=== PATIENT | female | born 1935 | race Caucasian/White ===

== ENCOUNTER → 2017-03-12 | Outpatient (CLI) | payer MEDICARE, OTHER ==
[2017-03-12 12:36] LABS: REASON FOR REVIEW COMPREHENSIVE REVIEW
== END ==
LOC: M LAB 11:05
PROVIDERS: ATTEND Family Medicine
DX: D72.1 Eosinophilia (principal)

== ENCOUNTER → 2017-09-21 | Outpatient (REF) | payer MEDICARE, OTHER ==
[2017-09-21 17:39] LABS: FREE T4 0.99 NG/DL (0.76-1.46)
== END ==
LOC: M LAB REF 17:03
DX: E07.9 Disorder of thyroid, unspecified (principal)
CPT/HCPCS: 84443

== ENCOUNTER → 2019-02-14 | Outpatient (CLI) | payer MEDICARE, OTHER ==
[~2019-02-14] MED LIST: AMLO10TA5 PO; ASPI81TA26 PO; BIOT1000 PO; BYST5TAB2 PO; CHLO25TA PO; LOSA100T50 PO; PANT40TA3 PO; PRAV20TA2 PO; SYMB16INH INH
[2019-02-14 14:32] LABS: ALBUMIN 3.7 GM/DL (3.2-5.2); CALCIUM LEVEL 9.3 MG/DL (8.8-10.2); CREATININE FOR GFR 1.35 MG/DL (0.55-1.30); PHOSPHORUS LEVEL 3.4 MG/DL (2.5-4.9); POTASSIUM SERUM 3.8 MEQ/L (3.5-5.1)
== END ==
LOC: M WUC 10:41
PROVIDERS: ATTEND Physician Assistant
DX: I10 Essential (primary) hypertension (principal)

== ENCOUNTER → 2019-03-09 | Outpatient (CLI) | payer MEDICARE, OTHER ==
[~2019-03-09] MED LIST changes: -AMLO10TA5 PO; -SYMB16INH INH
--- NOTE | 2019-03-09 11:31 | REP ---
Lower Extremity Venous Reflux: Positive reflux is greater than 0.5 seconds. Right Reflux Left Reflux CFV Reflux no no Ant. Acc. GSV Present no yes Reflux no no Greater saph/fem junction 6.9 mm no five mm no Greater saph vein mid thigh 2.3 mm no 1.9 mm no Greater saph vein at knee 1.8 mm yes 1.5 mm no SFV PROX no no SFV MID no no SFV DISTAL no no POPLITEAL VEIN no no LSV 5.8 mm no 6.3 mm no On the right, there is reflux in the distal greater saphenous vein. There is no reflux on the left. Bilateral lower extremity deep vein duplex ultrasound for thrombus: The deep veins demonstrate normal compression, normal Doppler color flow and normal Doppler waveforms with respiration and augmentation from the popliteal veins to the common femoral veins in the right and left lower extremities. Impression: There is no deep vein thrombus in the right or left lower extremities . Electronically Signed by Gaurang Tidwell MD 03/09/2019 11:23 A
--- NOTE | 2019-03-09 11:59 | REP ---
BILATERAL LOWER EXTREMITY DUPLEX DOPPLER ARTERIAL ULTRASOUND: Real-time ultrasound evaluation and duplex Doppler interrogation of the bilateral lower extremity arterial systems is performed. LLUVIA is 1.1 and left 1.1. There is noncalcified and calcified plaque seen diffusely bilaterally. There is elevated peak systolic velocity in the mid right superficial femoral artery compatible with fairly high grade stenosis. Lesser degree of stenosis is seen in the mid left superficial femoral artery, with lesser degree of elevated peak systolic velocity at that location. Triphasic waveforms are seen in the right common femoral and profunda arteries with monophasic waveforms in the superficial femoral artery as well as distally. Biphasic waveforms are seen in the left common femoral artery and profunda with the monophasic waveforms more distally in the superficial femoral artery and calf arteries. Biphasic waveforms are seen in the distal superficial femoral and popliteal arteries on the left. PEAK SYSTOLIC VELOCITY RIGHT LEFT Common femoral artery 133.0 cm/s 105.0 cm/s Profunda 142.5 108.0 Proximal SFA 80.3 118.0 Superficial femoral artery mid 391.2 166.4 Superficial femoral artery distal 139.9 110.2 Popliteal 76.3 101.1 Proximal anterior tibial artery 60.0 33.4 Tibial peroneal trunk 73.7 74.9 Proximal posterior tibial artery 66.8 78.9 Distal posterior tibial artery 26.0 17.3 Distal anterior tibial artery 45.3 33.7 IMPRESSION: Moderate plaquing and narrowing diffusely bilaterally with stenosis of the mid superficial femoral arteries, right greater than left. Electronically Signed by Gaurang Cho MD 03/09/2019 06:27 P
== END ==
LOC: M RAD 07:42
PROVIDERS: ATTEND Surgery Vascular Surgery
DX: I70.213 Atherosclerosis of native arteries of extremities with intermittent claudication, bilateral legs (principal); I83.813 Varicose veins of bilateral lower extremities with pain

== ENCOUNTER → 2019-03-22 | Outpatient (CLI) | payer MEDICARE, OTHER ==
[~2019-03-22] MED LIST changes: +AMLO10TA5 PO; +SYMB16INH INH
[2019-03-22 14:51] LABS: HEMATOCRIT 39.3 % (36.0-47.0); HEMOGLOBIN 13.3 g/dl (12.0-15.5); MEAN CORPUSCULAR HEMOGLOBIN 30.7 pg (27.0-33.0); MEAN CORPUSCULAR HGB CONC 33.8 g/dl (32.0-36.5); MEAN CORPUSCULAR VOLUME 90.8 fl (80.0-96.0); PLATELET COUNT, AUTOMATED 275 10^3/uL (150-450); RED BLOOD COUNT 4.33 10^6/uL (4.00-5.40); WHITE BLOOD COUNT 7.6 10^3/uL (4.0-10.0)
[2019-03-22 15:16] LABS: CALCIUM LEVEL 9.2 MG/DL (8.8-10.2); CREATININE FOR GFR 1.52 MG/DL (0.55-1.30); GLOMERULAR FILTRATION RATE 34.9 (>32); POTASSIUM SERUM 4.2 MEQ/L (3.5-5.1)
== END ==
LOC: M LAB 14:15
PROVIDERS: ATTEND Surgery Vascular Surgery
DX: Z01.818 Encounter for other preprocedural examination (principal); I70.213 Atherosclerosis of native arteries of extremities with intermittent claudication, bilateral legs

== ENCOUNTER → 2019-03-28 | Outpatient (CLI) | payer MEDICARE, OTHER ==
[~2019-03-28] MED LIST changes: +HEPARIN 1,000 UNITS/ML 10ML VIAL (FOR RADIOLOGY& DIALYSIS ONLY) As Ordered ONE; +ISOVUE-300 61% 50ML VIAL (Q9967) As Ordered ONE; +LIDOCAINE 1% MDV 20ML VIAL As Ordered ONE; +MIDAZOLAM INJ 2 MG/2 ML VIAL (J2250) As Ordered ONE; +diphenhydrAMINE INJ 50MG/ML VIAL (J1200) As Ordered ONE; +fentaNYL 100 MCG/2 ML INJECTION (J3010) As Ordered ONE
--- NOTE | 2019-03-28 10:54 | ROOPDOC ---
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 Ultrasound-guided access left common femoral artery 2. Aortoiliofemoral arteriogram, right lower extremity arteriograms from selection common femoral artery, distal posterior tibial artery 3. Angioplasty left superficial femoral artery and proximal popliteal artery including pre-existing stent with 5 x 200 Deposit balloon 4. 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 Completion arteriograms 6. Mynx closure left common femoral artery SURGEON: Eric Plaza MD ANESTHESIA: Lidocaine 8 mL local sedation. Moderate intravenous conscious sedation was supervised by Dr. Plaza. The patient was independently monitored by registered nurse in to the department of radiology using automated blood pressure, EKG, and pulse oximetry. The detailed sedation record is permanently housed in the hospital information system. The following is the [facility] sedation record: Start time 09:43, stop time 10:29, fentanyl 75 g IV, Versed 1 mg IV, heparin 5000 units IV. CONTRAST: Isovue 36 mL INDICATION FOR PROCEDURE: Mrs. Kramer is a very pleasant 83-year-old patient with PVD and claudication as well as venous insufficiency was swelling of the bilateral lower extremities. She is unable to wear compression due to arterial insufficiency, and we discussed the risks benefits and alternatives to an arteriogram with potential intervention. Her right leg is worse, so we will pursue that leg first. Breast benefits and alternatives to an arteriogram possible angioplasty possible stent were explained to the patient. She is agreeable to proceed. Informed consent was obtained. INTERPRETATION: 1. The aortoiliac segments are widely patent. 2. The right common femoral and profunda are widely patent in the proximal SFA is widely patent. About 5 cm distal to the origin, there is diffuse plaque throughout the rest of the SFA and proximal popliteal artery that narrows the vessel and has multiple luminal irregularities that combined or flow-limiting. There is no focal stenosis greater than 50%, but the vessel is diffusely narrowed about 40%. 3. The distal popliteal arteries widely patent and proximally there is 3 vessels open, but the anterior tibial is the main runoff to the foot. The peroneal artery is patent but diminutive in size. The posterior tibial artery occluded several centimeters from its origin and there is a hint of reconstitution at the ankle. 4. After angioplasty of the SFA, there were 2 mild mid SFA dissections, but these were not flow-limiting and no additional stenting or intervention was p erformed. The rest of the vessel was widely patent after angioplasty with a much improved flow rate. No extravasation or embolization was noted. The Cheng's canal stent that was placed by a separate surgeon at a separate procedure is now patent. 5. After crossing the occlusion and the posterior tibial artery, and confirming we were intraluminal with a quick arteriogram, the vessel was successfully angioplastied with a 2.5 x 200 Sachin balloon with 3 vessel runoff to the foot. No extravasation, embolization, or dissection was noted. REPORT OF OPERATION: The patient was brought to the angiographic suite in stable condition and placed supine on the fluoroscopic table. Her bilateral groins were prepped and draped in sterile fashion. A timeout was performed. Sedation was administered without complication. Local anesthesia was a adjunct instructor chemistry to the skin and subcutaneous tissue over the left common femoral artery and a microneedle was used to access the artery under ultrasound guidance. Wire was passed through this access fluoroscopic guidance and a micro-sheath was placed. We then advanced a Glidewire through this access into the aorta under fluoroscopic guidance and are sheath was exchanged for a 6 Cymraes sheath which was flushed with saline. The catheter was advanced over the wire and and aortoiliofemoral arteriogram was performed. Please see interpretation above. We then went up and over the bifurcation with a Glidewire and the catheter and selected the common femoral artery. The right lower extremity arteriogram with runoff was performed. Please see interpretation above. We then advanced the wire in the superficial femoral artery and exchange the sheath for 45 cm 6 Cymraes sheath into the origin of the right SFA and flushed sheath with saline. We advanced a Glidewire across the SFA and angioplastied from the proximal popliteal to the proximal superficial femoral artery with a 5 x 200 Deposit balloon for three-minute inflations. Following this, there is a dramatic improvement in flow. Small nonflow limiting dissections into mid portions of the SFA were noted, no additional intervention was required. No extravasation or embolization was noted. We then advanced a Glidewire with a glide cath through the tibial system. It was a little challenging to access the posterior tibial artery but we were able to do so and eventually we were able to cross the chronic total occlusion to the ankle. The wire was advanced across the ankle to the plantar vessel and we confirmed to be in the true lumen with a selection of the distal posterior tibial artery. We then did exchange the wire for an O18 wire and advanced a 2.5 x 220 Sachin balloon across the ankle and angioplastied the distal posterior tibial artery to the foot. We then retracted the balloon and did a separate angioplasty more proximally. Both inflations were 3 minutes, and following this, there was rapid 3 vessel runoff to the foot. No extravasation, embolization, or dissection were noted in the tibial vessels. This concluded her procedure. We exchange the wire for an O35 wire and exchange the sheath for short 6 Cymraes sheath in the left common femoral artery. This was flushed with saline. We deployed a Mincks closure device with good hemostasis. Pressure was held for 10 minutes and the patient was taken to recovery in stable condition. There were no complications and she tolerated the procedure very well. ESTIMATED BLOOD LOSS: Approximately 5 mL. COMPLICATIONS: None. PLAN: Our plan is to see the patient back within the week to check her left groin access site and see how she is doing after angioplasty. We will discuss options for the left lower extremity at that time. It is okay for her to resume all of her home medications. ERIC PLAZA MD Mar 28, 2019 10:54
[2019-03-28 15:56] VITALS: BP 144/68
== END ==
LOC: M IRPRO 07:58
PROVIDERS: ATTEND Surgery Vascular Surgery
DX: I70.211 Atherosclerosis of native arteries of extremities with intermittent claudication, right leg (principal); I70.92 Chronic total occlusion of artery of the extremities
CPT/HCPCS: 37224; 37228; 75710; 99152; 99153; C1725; C1760; C1769; C1887; C1894; J2250; J3010; Q9967

== ENCOUNTER 2019-04-02 14:49 | Emergency (ER) | payer MEDICARE, OTHER ==
[~2019-04-02] VITALS: Ht 162.6 cm; Wt 80.6 kg
[~2019-04-02 14:49] MED LIST changes: -AMLO10TA5 PO; -HEPARIN 1,000 UNITS/ML 10ML VIAL (FOR RADIOLOGY& DIALYSIS ONLY) As Ordered ONE; -ISOVUE-300 61% 50ML VIAL (Q9967) As Ordered ONE; -LIDOCAINE 1% MDV 20ML VIAL As Ordered ONE; -MIDAZOLAM INJ 2 MG/2 ML VIAL (J2250) As Ordered ONE; -diphenhydrAMINE INJ 50MG/ML VIAL (J1200) As Ordered ONE; -fentaNYL 100 MCG/2 ML INJECTION (J3010) As Ordered ONE
[2019-04-02] MEDS ORDERED: AMLO10TA5 PO (15:04)
[2019-04-02 15:55] VITALS: BP 145/67
== END 2019-04-02 17:23 | disposition home or self-care (01) ==
LOC: M ED 14:49
DX: L76.32 Postprocedural hematoma of skin and subcutaneous tissue following other procedure (principal); K21.9 Gastro-esophageal reflux disease without esophagitis; J44.9 Chronic obstructive pulmonary disease, unspecified; I10 Essential (primary) hypertension; E78.5 Hyperlipidemia, unspecified; Z79.82 Long term (current) use of aspirin; Z79.899 Other long term (current) drug therapy

== ENCOUNTER → 2019-08-29 | Outpatient (CLI) | payer MEDICARE, OTHER ==
[~2019-08-29] MED LIST changes: +AMLO10TA5 PO
--- NOTE | 2019-08-29 13:30 | REP ---
Bilateral lower extremity Duplex Doppler venous ultrasound: Real time compression and duplex Doppler interrogation of the bilateral lower extremity deep venous system is performed. Bilaterally, the common femoral, superficial femoral and popliteal veins are fully compressible with transducer pressure and demonstrate normal spontaneous and phasic flow, without evidence of deep venous thrombosis. Impression: No evidence of deep venous thrombosis of the bilateral lower extremity femoral popliteal venous system. Electronically Signed by Gaurang Cho MD 08/29/2019 01:22 P
== END ==
LOC: M RAD 11:30
PROVIDERS: ATTEND Internal Medicine Cardiovascular Disease
DX: R60.0 Localized edema (principal)

== ENCOUNTER → 2019-09-30 | Outpatient (CLI) | payer MEDICARE, OTHER ==
--- NOTE | 2019-09-30 10:44 | REP ---
RENAL ULTRASOUND: Real-time sonographic evaluation of the kidneys performed. The left kidney is smaller than the right kidney. Right kidney measures 10.5 x 4.9 x 4.9 cm and the left kidney 8.9 x 3.8 x 4.2 cm. There is no hydronephrosis bilaterally. There is a cyst in the right mid kidney, 1.1 x 0.6 x 1.0 cm. No other renal abnormalities are seen. Urinary bladder is mildly distended. There are bilateral ureteral jets noted with Doppler color evaluation. IMPRESSION: Left kidney is somewhat smaller than the right. No hydronephrosis. Right renal cyst. Electronically Signed by Gaurang Cho MD 09/30/2019 10:48 A
== END ==
LOC: M RAD 09:29
PROVIDERS: ATTEND Internal Medicine Nephrology
DX: N18.3 Chronic kidney disease, stage 3 (moderate) (principal)

== ENCOUNTER → 2020-09-21 | Outpatient (CLI) | payer MEDICARE, OTHER ==
[~2020-09-21] MED LIST changes: -AMLO10TA5 PO; +AMLO1TAB25 PO; +PANT40TA29 PO; -PANT40TA3 PO
--- NOTE | 2020-09-21 15:43 | REP ---
INDICATION: CLAUDICATION. COMPARISON: Comparison study 09 March 2019.. TECHNIQUE: Bilateral lower extremity arterial Doppler ultrasound. FINDINGS: Compression for ankle brachial indices could not be tolerated. Moderate bilateral plaquing is observed. Relatively normal biphasic arterial Doppler waveforms are noted on the right. Observe Doppler arterial velocities in the right lower extremity are similar to the prior study. Slower flows are observed in the left lower extremity and abnormal more extensive abnormal monophasic waveforms are observed in the left lower extremity compared to the prior study. There is a 2.6-1 velocity ratio stenosis in the left popliteal and another 2.6-1 velocity ratio stenosis is seen in the left distal SFA. Decreased inflow velocities are observed on the left. Iliac disease could not be evaluated with this exam due to bowel gas. Right lower extremity arterial Doppler velocity chart: Right APPLICATION SUPPORT LEAD PSV 114 cm/S Profundal 139 Prior to proximal SFA 103 Mid SFA 98 Distal SFA 136 Popliteal 99 Proximal CODEY 44 Tibial-peroneal trunk 50 Proximal EXECUTIVE COACH 41 Distal EXECUTIVE COACH 81 Distal CODEY 58 Left lower extremity arterial Doppler velocity chart: Left APPLICATION SUPPORT LEAD PSV 75 cm/S Profundal 65 Proximal SFA 72 Mid SFA 90 Distal SFA 128/340 Popliteal 94/242 Proximal CODEY 35 Tibial-peroneal trunk 46 Proximal EXECUTIVE COACH 57 Distal EXECUTIVE COACH 49 Distal CODEY 30 IMPRESSION: Evidence of progressive atherosclerotic disease with possible inflow stenosis on the left and stenoses developing in the distal SFA and popliteal on the left. Monophasic waveforms on the left. <Electronically signed by Jose Francisco Cano > 09/21/20 3901
== END ==
LOC: M RAD 12:54
PROVIDERS: ATTEND Physician Assistant
DX: I70.213 Atherosclerosis of native arteries of extremities with intermittent claudication, bilateral legs (principal)

== ENCOUNTER 2020-10-16 09:22 | Emergency (ER) | payer MEDICARE, OTHER ==
[~2020-10-16] VITALS: Ht 162.6 cm; Wt 80.3 kg
[2020-10-16] MEDS ORDERED: AMLO2.5T3 (09:36)
[2020-10-16] MEDS ORDERED: ALLO100T (09:36)
[2020-10-16] MEDS ORDERED: TORS10TA3 (09:36)
[2020-10-16 11:23] VITALS: BP 170/90
== END 2020-10-16 11:32 | disposition home or self-care (01) ==
LOC: M ED 09:22
DX: I73.9 Peripheral vascular disease, unspecified (principal); J44.9 Chronic obstructive pulmonary disease, unspecified; K21.9 Gastro-esophageal reflux disease without esophagitis; I10 Essential (primary) hypertension; Z87.891 Personal history of nicotine dependence; Z79.82 Long term (current) use of aspirin; Z79.899 Other long term (current) drug therapy

== ENCOUNTER → 2021-02-05 | Outpatient (REF) | payer MEDICARE, OTHER ==
[~2021-02-05] MED LIST changes: +ALLO100T; +AMLO2.5T3; +TORS10TA3
== END ==
LOC: M LAB REF 11:50
PROVIDERS: ATTEND Internal Medicine Nephrology
DX: N18.32 Chronic kidney disease, stage 3b (principal)

== ENCOUNTER → 2021-06-05 | Outpatient (CLI) | payer MEDICARE, OTHER | LOC: M LABSMTC 11:37 | PROVIDERS: ATTEND Pediatrics | DX: Z20.822 Contact with and (suspected) exposure to COVID-19 (principal) | CPT/HCPCS: C9803; U0003 ==

== ENCOUNTER → 2021-08-06 | Outpatient (REF) | payer MEDICARE, OTHER ==
[~2021-08-06] MED LIST changes: +LOSA100T45 PO; -LOSA100T50 PO
[2021-08-06 18:03] LABS: PERCENT SATURATION 43.8 % (13.2-45.0)
== END ==
LOC: M LAB REF 17:42
PROVIDERS: ATTEND Nurse Practitioner Family
DX: D50.9 Iron deficiency anemia, unspecified (principal)

== ENCOUNTER → 2022-04-01 | Outpatient (CLI) | payer MEDICARE, OTHER ==
[2022-04-01 18:45] LABS: CALCIUM LEVEL 9.8 MG/DL (8.8-10.2); CREATININE FOR GFR 1.7 MG/DL (0.55-1.30); GLOMERULAR FILTRATION RATE 30.4 (>32); POTASSIUM SERUM 4.7 MEQ/L (3.5-5.1)
== END ==
LOC: M WUC 11:08
PROVIDERS: ATTEND Physician Assistant
DX: I50.32 Chronic diastolic (congestive) heart failure (principal)

== ENCOUNTER → 2022-09-15 | Outpatient (CLI) | payer MEDICARE, OTHER | LOC: M ADAMS 08:39 | PROVIDERS: ATTEND Family Medicine | DX: M54.50 Low back pain, unspecified (principal) ==

== ENCOUNTER → 2022-10-20 | Outpatient (CLI) | payer MEDICARE, OTHER ==
[~2022-10-20] MED LIST changes: -LOSA100T45 PO; +LOSA100T46 PO
== END ==
LOC: M RAD 08:59
PROVIDERS: ATTEND Nurse Practitioner Family
DX: N17.9 Acute kidney failure, unspecified (principal); I12.9 Hypertensive chronic kidney disease with stage 1 through stage 4 chronic kidney disease, or unspecified chronic kidney disease

== ENCOUNTER → 2022-12-03 | Outpatient (CLI) | payer MEDICARE, OTHER | LOC: M WHC 10:44 | PROVIDERS: ATTEND Orthopaedic Surgery | DX: M81.0 Age-related osteoporosis without current pathological fracture (principal) ==

== ENCOUNTER 2022-12-22 10:24 | Observation (INO) | payer MEDICARE, OTHER ==
[~2022-12-22] VITALS: Ht 162.6 cm; Wt 77.3 kg
[~2022-12-22 10:24] MED LIST changes: -ALLO100T; +ALLO100T PO; -TORS10TA3; +TORS10TA3 PO
[2022-12-22] MEDS ORDERED: LABETALOL 100MG/20ML VIAL IV STA ×2 (12:13→13:21)
[2022-12-22 12:34] LABS: BASO % 0.4 % (0.0-1.0); EOS # 0.8 10^3/uL (0.0-0.5); EOS % 10.8 % (0.0-3.0); HEMATOCRIT 38.2 % (36.0-47.0); HEMOGLOBIN 12.3 g/dl (12.0-15.5); LYMPH # 1.4 10^3/uL (1.5-5.0); LYMPH % 19.5 % (24.0-44.0); MEAN CORPUSCULAR HEMOGLOBIN 30.2 pg (27.0-33.0); MEAN CORPUSCULAR HGB CONC 32.2 g/dl (32.0-36.5); MEAN CORPUSCULAR VOLUME 93.9 fl (80.0-96.0); MONO # 0.5 10^3/uL (0.0-0.8); MONO % 7.1 % (2.0-8.0); NEUTROPHILS # 4.4 10^3/uL (1.5-8.5); NEUTROPHILS % 61.9 % (36.0-66.0); PLATELET COUNT, AUTOMATED 229 10^3/uL (150-450); RED BLOOD COUNT 4.07 10^6/uL (4.00-5.40); WHITE BLOOD COUNT 7.1 10^3/uL (4.0-10.0)
[2022-12-22 12:59] LABS: ALBUMIN 3.7 G/DL (3.2-5.2); BILIRUBIN,DIRECT 0.1 MG/DL (<0.4); BILIRUBIN,TOTAL 0.5 MG/DL (0.3-1.2); CALCIUM LEVEL 9.3 MG/DL (8.3-10.6); CK-MB VALUE MASS 1.5 NG/ML (<3.6); CREATININE FOR GFR 1.6 MG/DL (0.55-1.30); GLOMERULAR FILTRATION RATE 32.5 (>32); POTASSIUM SERUM 4.7 MMOL/L (3.5-5.1); TOTAL PROTEIN 6.7 G/DL (5.7-8.2)
[2022-12-22 13:00] LABS: FREE T4 1.15 NG/DL (0.89-1.76)
[2022-12-22 13:01] LABS: THYROID STIMULATING HORMONE 2.083 uIU/ML (0.55-4.78)
[2022-12-22 13:02] LABS: MB/CK RELATIVE INDEX 1.57 (< OR =4)
[2022-12-22 14:29] LABS: RSV AMPLIFICATION NEGATIVE (NEGATIVE)
[2022-12-22] MEDS ORDERED: MED REC IN PROGRESS XX SCH (14:40)
[2022-12-22] MEDS ORDERED: hydrALAZINE 20MG/ML 1ML VIAL IV ONE (14:45)
[2022-12-22] MEDS ORDERED: BIOT50004 PO (15:02)
[2022-12-22] MEDS ORDERED: CLOP75TA2 PO (15:06)
[2022-12-22] MEDS ORDERED: MELO15TA28 PO (15:06)
[2022-12-22] MEDS ORDERED: NIAC1000 PO (15:10)
[2022-12-22] MEDS ORDERED: NIAC250T3 PO (15:10)
[2022-12-22] MEDS ORDERED: NIAC1TAB5 PO (15:10)
[2022-12-22] MEDS ORDERED: **hydrALAZINE HCL** 25 MG TAB PO PRN (15:30)
[2022-12-22] MEDS ORDERED: ACETAMINOPHEN TAB 650MG DOSE (2X325MG) PO PRN (15:30)
[2022-12-22] MEDS ORDERED: HOME MED LIST COMPLETE! XX SCH (15:35)
[2022-12-22] MEDS: amLODIPine 5 MG TAB PO SCH (17:01)
[2022-12-22] MEDS ORDERED: SYMBICORT 160/4.5MCG INHALER 6GM INH SCH (20:00)
[2022-12-22 23:30] VITALS: BP 160/70; TEMP 97.3; O2SAT 95
[2022-12-23 03:25] VITALS: BP 122/57; TEMP 97; O2SAT 97
[2022-12-23 04:55] LABS: HEMATOCRIT 33.8 % (36.0-47.0); HEMOGLOBIN 11.1 g/dl (12.0-15.5); MEAN CORPUSCULAR HEMOGLOBIN 30.4 pg (27.0-33.0); MEAN CORPUSCULAR HGB CONC 32.8 g/dl (32.0-36.5); MEAN CORPUSCULAR VOLUME 92.6 fl (80.0-96.0); PLATELET COUNT, AUTOMATED 204 10^3/uL (150-450); RED BLOOD COUNT 3.65 10^6/uL (4.00-5.40); WHITE BLOOD COUNT 6.2 10^3/uL (4.0-10.0)
[2022-12-23 05:13] LABS: CALCIUM LEVEL 9.1 MG/DL (8.3-10.6); CREATININE FOR GFR 1.45 MG/DL (0.55-1.30); GLOMERULAR FILTRATION RATE 36.4 (>32)
[2022-12-23] MEDS ORDERED: HEPARIN SOD (PORCINE) 5000UNITS/ML 1ML VIAL/SYRINGE SC SCH (06:00)
[2022-12-23 07:55] VITALS: BP 150/72; TEMP 97.1; O2SAT 96
[2022-12-23] MEDS ORDERED: AMLO1TAB24 PO (08:38)
[2022-12-23] MEDS ORDERED: TORSEMIDE 10 MG TABLET PO SCH (09:00)
[2022-12-23] MEDS ORDERED: LOSARTAN 50MG TABLET PO SCH (09:00)
[2022-12-23] MEDS ORDERED: CLOPIDOGREL 75 MG TAB PO SCH (09:00)
[2022-12-23] MEDS ORDERED: PRAVASTATIN 20 MG TAB PO SCH (09:00)
[2022-12-23] MEDS ORDERED: allopurinoL 100 MG TAB PO SCH (09:00)
[2022-12-23] MEDS ORDERED: NIACIN SR (NIASPAN) 500MG TAB PO SCH (09:00)
[2022-12-23] MEDS ORDERED: PANTOPRAZOLE 40MG TAB (PROTONIX) PO SCH (09:00)
[2022-12-23] MEDS ORDERED: NEBIVOLOL 5 MG TAB (BYSTOLIC) PO SCH (09:00)
[2022-12-23 09:53] VITALS: BP 150/72
[2022-12-23] MEDS: amLODIPine 5 MG TAB PO SCH (09:53)
== END 2022-12-23 11:43 | disposition home or self-care (01) ==
LOC: M ED 10:24 → M ED INP 10:25 → M PCU 23:29
PROVIDERS: ADMIT Family Medicine; ATTEND Family Medicine
DX: I16.0 Hypertensive urgency (principal); R53.1 Weakness; I10 Essential (primary) hypertension; I73.9 Peripheral vascular disease, unspecified; Z79.899 Other long term (current) drug therapy
CPT/HCPCS: 36415; 70450; 71045; 80048; 80076; 82550; 82553; 83735; 84439; 84443; 84484; 85025; 85027; 87631; 93005; 93041; 94640; 94760; 96372; 96374; 96375; 96376; 99285; G0378; J0360; J1920

== ENCOUNTER → 2023-01-02 | Outpatient (CLI) | payer MEDICARE, OTHER ==
[~2023-01-02] MED LIST changes: +AMLO1TAB24 PO; +BIOT50004 PO; +CLOP75TA2 PO; +MELO15TA28 PO; +NIAC1000 PO; +NIAC1TAB5 PO; +NIAC250T3 PO
== END ==
LOC: M PLARAD 12:43
PROVIDERS: ATTEND Orthopaedic Surgery
DX: M25.511 Pain in right shoulder (principal); M79.601 Pain in right arm; M47.892 Other spondylosis, cervical region

== ENCOUNTER → 2023-09-28 | Outpatient (CLI) | payer MEDICARE, OTHER ==
[~2023-09-28] MED LIST changes: -BIOT50004 PO; +BIOT5CAP8 PO
== END ==
LOC: M WUC 10:49
PROVIDERS: ATTEND Nurse Practitioner Family
DX: R07.82 Intercostal pain (principal); W01.10XA Fall on same level from slipping, tripping and stumbling with subsequent striking against unspecified object, initial encounter

== ENCOUNTER 2024-07-26 16:22 | Emergency (ER) | payer MEDICARE, OTHER ==
[~2024-07-26] VITALS: Ht 162.6 cm; Wt 71.3 kg
[~2024-07-26 16:22] MED LIST changes: +BYST1TAB2 PO; -BYST5TAB2 PO
[2024-07-26] MEDS ORDERED: GABA-1171 (16:38)
[2024-07-26 16:39] VITALS: TEMP 97.1
[2024-07-26 17:06] LABS: BASO % 0.5 % (0.0-1.0); EOS # 0.2 10^3/uL (0.0-0.5); EOS % 3.5 % (0.0-3.0); HEMATOCRIT 37.2 % (36.0-47.0); HEMOGLOBIN 12.1 g/dl (12.0-15.5); LYMPH # 1.2 10^3/uL (1.5-5.0); LYMPH % 20.7 % (24.0-44.0); MEAN CORPUSCULAR HEMOGLOBIN 30.6 pg (27.0-33.0); MEAN CORPUSCULAR HGB CONC 32.5 g/dl (32.0-36.5); MEAN CORPUSCULAR VOLUME 94.2 fl (80.0-96.0); MONO # 0.7 10^3/uL (0.0-0.8); MONO % 11.8 % (2.0-8.0); NEUTROPHILS # 3.8 10^3/uL (1.5-8.5); NEUTROPHILS % 63.2 % (36.0-66.0); PLATELET COUNT, AUTOMATED 314 10^3/uL (150-450); RED BLOOD COUNT 3.95 10^6/uL (4.00-5.40)
[2024-07-26 17:37] LABS: CALCIUM LEVEL 8.2 MG/DL (8.3-10.6); CREATININE FOR GFR 1.45 MG/DL (0.55-1.30); GLOMERULAR FILTRATION RATE 36.3 (>32); MAGNESIUM LEVEL 1.6 MG/DL (1.8-2.4); POTASSIUM SERUM 5.8 MMOL/L (3.5-5.1)
[2024-07-26] MEDS: MAG SULF 1GM/100ML (MAG RUN) 1 GM in IV 1 EA IV ONE (18:19)
[2024-07-26 18:31] VITALS: BP 163/71; O2SAT 96
[2024-07-26] MEDS ORDERED: LOSA50TA28 PO (18:44)
[2024-07-26] MEDS ORDERED: SLOWTAB2 PO (18:49)
== END 2024-07-26 19:55 | disposition home or self-care (01) ==
LOC: M ED 16:22 → EDBD 16:22 → M ED 19:55
DX: E83.42 Hypomagnesemia (principal); I95.89 Other hypotension; K57.30 Diverticulosis of large intestine without perforation or abscess without bleeding; E78.5 Hyperlipidemia, unspecified; I10 Essential (primary) hypertension; J44.9 Chronic obstructive pulmonary disease, unspecified; K21.9 Gastro-esophageal reflux disease without esophagitis; R16.1 Splenomegaly, not elsewhere classified; Z79.899 Other long term (current) drug therapy; Z79.811 Long term (current) use of aromatase inhibitors
CPT/HCPCS: 80048; 83735; 84132; 85025; 93005; 93041; 94760; 96374; 99285; J3475

== ENCOUNTER 2024-09-12 09:07 | Emergency (ER) | payer MEDICARE, OTHER ==
[~2024-09-12] VITALS: Ht 162.6 cm; Wt 72.7 kg
[~2024-09-12 09:07] MED LIST changes: +GABA-1171; +LOSA50TA28 PO; +SLOWTAB2 PO
[2024-09-12 09:10] VITALS: TEMP 97.5
[2024-09-12] MEDS ORDERED: DULO1CAP4 (09:31)
[2024-09-12] MEDS ORDERED: MECL-86 (09:31)
[2024-09-12 09:55] LABS: BASO % 0.6 % (0.0-1.0); EOS # 0.4 10^3/uL (0.0-0.5); EOS % 5.7 % (0.0-3.0); HEMATOCRIT 39.8 % (36.0-47.0); HEMOGLOBIN 13.1 g/dl (12.0-15.5); LYMPH # 1.3 10^3/uL (1.5-5.0); LYMPH % 18.8 % (24.0-44.0); MEAN CORPUSCULAR HEMOGLOBIN 29.8 pg (27.0-33.0); MEAN CORPUSCULAR HGB CONC 32.9 g/dl (32.0-36.5); MEAN CORPUSCULAR VOLUME 90.5 fl (80.0-96.0); MONO # 0.6 10^3/uL (0.0-0.8); MONO % 8.6 % (2.0-8.0); NEUTROPHILS # 4.4 10^3/uL (1.5-8.5); PLATELET COUNT, AUTOMATED 275 10^3/uL (150-450); WHITE BLOOD COUNT 6.7 10^3/uL (4.0-10.0)
[2024-09-12 10:24] LABS: ALBUMIN 3.6 G/DL (3.2-5.2); BILIRUBIN,TOTAL 0.7 MG/DL (0.3-1.2); CALCIUM LEVEL 10.2 MG/DL (8.3-10.6); CREATININE FOR GFR 0.95 MG/DL (0.55-1.30); GLOMERULAR FILTRATION RATE 57.6 (>32); POTASSIUM SERUM 3.9 MMOL/L (3.5-5.1); TOTAL PROTEIN 6.7 G/DL (5.7-8.2)
[2024-09-12] MEDS: NS 500 ML IV ONE (12:00)
[2024-09-12 12:29] LABS: BASO % 0.4 % (0.0-1.0); EOS # 0.3 10^3/uL (0.0-0.5); EOS % 3.8 % (0.0-3.0); HEMATOCRIT 38.8 % (36.0-47.0); HEMOGLOBIN 12.8 g/dl (12.0-15.5); LYMPH # 1.6 10^3/uL (1.5-5.0); LYMPH % 23.4 % (24.0-44.0); MEAN CORPUSCULAR HEMOGLOBIN 30.2 pg (27.0-33.0); MEAN CORPUSCULAR VOLUME 91.5 fl (80.0-96.0); MONO # 0.6 10^3/uL (0.0-0.8); MONO % 8.3 % (2.0-8.0); NEUTROPHILS # 4.4 10^3/uL (1.5-8.5); PLATELET COUNT, AUTOMATED 263 10^3/uL (150-450); RED BLOOD COUNT 4.24 10^6/uL (4.00-5.40); WHITE BLOOD COUNT 6.9 10^3/uL (4.0-10.0)
[2024-09-12 12:56] LABS: ALBUMIN 3.5 G/DL (3.2-5.2); BILIRUBIN,DIRECT 0.1 MG/DL (<0.4); BILIRUBIN,TOTAL 0.6 MG/DL (0.3-1.2); CALCIUM LEVEL 9.9 MG/DL (8.3-10.6); CREATININE FOR GFR 0.94 MG/DL (0.55-1.30); GLOMERULAR FILTRATION RATE 58.4 (>32); TOTAL PROTEIN 6.6 G/DL (5.7-8.2)
[2024-09-12 12:58] LABS: THYROID STIMULATING HORMONE 1.055 uIU/ML (0.55-4.78)
[2024-09-12 15:32] VITALS: BP 225/92
[2024-09-12] MEDS: LOSARTAN 50MG TABLET PO ONE (15:32)
[2024-09-12] MEDS ORDERED: physical therapy (16:02)
[2024-09-12 16:41] VITALS: BP 228/96; O2SAT 99
== END 2024-09-12 16:57 | disposition home or self-care (01) ==
LOC: M ED 09:07
DX: H81.4 Vertigo of central origin (principal); I10 Essential (primary) hypertension; J44.9 Chronic obstructive pulmonary disease, unspecified; I73.9 Peripheral vascular disease, unspecified; Z79.899 Other long term (current) drug therapy; Z79.01 Long term (current) use of anticoagulants

== ENCOUNTER → 2024-09-26 | Outpatient (CLI) | payer MEDICARE, OTHER ==
[~2024-09-26] MED LIST changes: +DULO1CAP4; +MECL-86; +physical therapy
[2024-09-26 15:57] LABS: PLATELET COUNT, AUTOMATED 269 10^3/uL (150-450)
[2024-09-26 16:16] LABS: INR 0.95; PARTIAL THROMBOPLASTIN TIME 26.5 SECONDS (24.8-34.2)
== END ==
LOC: M LAB 15:18
PROVIDERS: ATTEND Orthopaedic Surgery
DX: Z01.818 Encounter for other preprocedural examination (principal)

== ENCOUNTER → 2024-12-26 | Outpatient (CLI) | payer MEDICARE, OTHER ==
[~2024-12-26] MED LIST changes: -BIOT1000 PO; +BIOT10002 PO; -PRAV20TA2 PO; +PRAV20TA78 PO; +SLOW1TAB3 PO; -SLOWTAB2 PO
[2024-12-26 13:27] LABS: CALCIUM LEVEL 9.6 MG/DL (8.3-10.6); CARBON DIOXIDE LEVEL 28.0 MMOL/L (20-31); CHLORIDE LEVEL 107.0 MMOL/L (98-107); CHOLESTEROL LEVEL 201.0 MG/DL (<200); CHOLESTEROL RISK RATIO 4.32 (<5); CREATININE FOR GFR 1.43 MG/DL (0.55-1.30); GLOMERULAR FILTRATION RATE 35.3 (>32); LDL CHOLESTEROL 126.1 MG/DL (<100); NON-HDL-C 154.5 MG/DL; POTASSIUM SERUM 4.4 MMOL/L (3.5-5.1); SODIUM LEVEL 146.0 MMOL/L (136-145); TRIGLYCERIDES LEVEL 142.0 MG/DL (<150)
[2024-12-26 13:49] LABS: BASO # 0.0 10^3/uL (0.0-0.2); BASO % 0.6 % (0.0-1.0); EOS # 1.5 10^3/uL (0.0-0.5); LYMPH # 1.6 10^3/uL (1.5-5.0); LYMPH % 23.8 % (24.0-44.0); MONO # 0.6 10^3/uL (0.0-0.8); MONO % 8.6 % (2.0-8.0); NEUTROPHILS # 3.0 10^3/uL (1.5-8.5); NEUTROPHILS % 44.4 % (36.0-66.0); PLATELET COUNT, AUTOMATED 223 10^3/uL (150-450)
[2024-12-26 13:57] LABS: EOS % 22.4 % (0.0-3.0)
== END ==
LOC: M WUC 08:50
PROVIDERS: ATTEND Internal Medicine Cardiovascular Disease
DX: I73.9 Peripheral vascular disease, unspecified (principal); R06.02 Shortness of breath; I35.0 Nonrheumatic aortic (valve) stenosis; R42 Dizziness and giddiness; Z79.899 Other long term (current) drug therapy